=== PATIENT | male | born 1960 | race Caucasian/White ===

== ENCOUNTER → 2016-11-25 | Outpatient (CLI) | payer OTHER ==
[~2016-11-25] MED LIST: ALBUTEROL0.63 MG/3 IH; ARTHROTEC 751 TABLET PO; CLONAZEPAM1 MG PO; CYMBALTA30 MG PO; CYMBALTA60 MG PO; FLOVENT DISKUS1 DISK IH; LIDODERM 5% P1 PATCH TD; LYRICA100 MG PO; OXYCONTIN20 MG PO; TIZANIDINE HCL4 M1 PO; TRAMADOL HCL50 MG PO; VENTOLIN HFA18 GM IH
== END | disposition home or self-care (01) ==
LOC: AMB 12:58
PROC: B01B1ZZ Fluoroscopy of Spinal Cord using Low Osmolar Contrast (ICD-10-PCS; principal; 2016-11-25)
DX: M96.1 Postlaminectomy syndrome, not elsewhere classified (principal); M54.5 Low back pain; M25.78 Osteophyte, vertebrae; M48.06 Spinal stenosis, lumbar region
CPT/HCPCS: 62304; 72132

== ENCOUNTER → 2017-04-29 | Outpatient (CLI) | payer OTHER | END | disposition home or self-care (01) | LOC: RAD 14:00 | PROC: 3E0R3KZ Introduction of Other Diagnostic Substance into Spinal Canal, Percutaneous Approach (ICD-10-PCS; principal; 2017-04-29) | DX: M46.06 Spinal enthesopathy, lumbar region (principal); M25.78 Osteophyte, vertebrae; M47.896 Other spondylosis, lumbar region; G95.89 Other specified diseases of spinal cord; M51.36 Other intervertebral disc degeneration, lumbar region; M53.86 Other specified dorsopathies, lumbar region; M51.26 Other intervertebral disc displacement, lumbar region; Z98.890 Other specified postprocedural states | CPT/HCPCS: 62304; 72132 ==

== ENCOUNTER → 2017-07-29 | Outpatient (CLI) | payer OTHER, BC | END | disposition home or self-care (01) | LOC: RAD 13:49 | PROC: 3E0R3KZ Introduction of Other Diagnostic Substance into Spinal Canal, Percutaneous Approach (ICD-10-PCS; principal; 2017-07-29) | DX: M48.07 Spinal stenosis, lumbosacral region (principal); M47.897 Other spondylosis, lumbosacral region; M43.25 Fusion of spine, thoracolumbar region; M51.26 Other intervertebral disc displacement, lumbar region; M89.38 Hypertrophy of bone, other site; M25.78 Osteophyte, vertebrae; Z96.89 Presence of other specified functional implants; Z98.890 Other specified postprocedural states | CPT/HCPCS: 62304; 72132 ==